=== PATIENT | male | born 1965 | race Native Hawaiian/Other Pacific Islander ===

== ENCOUNTER 2019-02-09 10:38 | Emergency (ER) | payer OTHER ==
[~2019-02-09] VITALS: Ht 167.6 cm; Wt 89.4 kg
[2019-02-09 13:02] VITALS: BP 150/88; TEMP 98
== END 2019-02-09 13:11 | disposition home or self-care (01) ==
LOC: ED 10:38
PROC: 0HQFXZZ Repair Right Hand Skin, External Approach (ICD-10-PCS; principal; 2019-02-09)
PROC: 2W3JX1Z Immobilization of Right Finger using Splint (ICD-10-PCS; 2019-02-09)
DX: S62.666A Nondisplaced fracture of distal phalanx of right little finger, initial encounter for closed fracture (principal); S61.316A Laceration without foreign body of right little finger with damage to nail, initial encounter; W23.0XXA Caught, crushed, jammed, or pinched between moving objects, initial encounter
CPT/HCPCS: 90715; 96372; 99282; J7040